=== PATIENT | female | born 1955 | race Caucasian/White ===

== ENCOUNTER 2017-04-18 16:50 | Emergency (ER) | payer MEDICAID ==
[2017-04-18] MEDS ORDERED: Bupivacaine 0.5% 30 ML SDV INFILT ONE (16:51)
--- NOTE | 2017-04-18 17:26 | EDM.PDOC ---
ED HPI GENERAL MEDICAL PROBLEM - General Stated Complaint: L FINGER LACERATION Time Seen by Provider: 04/18/17 16:50 Source of Information: Reports: Patient, Family History Limitations: Reports: No Limitations - History of Present Illness INITIAL COMMENTS - FREE TEXT/NARRATIVE: 61 years old w f came to the ed with her mom after she cut herself in her left middle finger tip at the kitchen while cutting tomatoes. The wound was severely bleeding what brought the pt the ED. No loss of function. No other acute medical issues at this time. Onset: Today Onset Date: 04/18/17 Onset Time: 16:45 Duration: Minutes: Location: Reports: Upper Extremity, Left (middle finger tip) Quality: Reports: Burning, Stabbing Severity: Mild Improves with: Reports: Rest Worsens with: Reports: Movement Context: Reports: Trauma Associated Symptoms: Reports: No Other Symptoms Left Middle Hand Pain Score (Numeric/FACES): 1 - Related Data Allergies Allergy/AdvReac Type Severity Reaction Status Date / Time Penicillins Allergy Severe Hives Verified 04/18/17 17:12 Sulfa (Sulfonamide Allergy Severe Hives Verified 04/18/17 17:12 Antibiotics) morphine Allergy Itching Verified 04/18/17 17:12 pseudoephedrine HCl Allergy Tachycardia Verified 04/18/17 17:12 [From Sudafed] Home Meds: Home Meds Aspirin [Ecotrin] 81 mg PO DAILY 08/02/14 [History] Ibuprofen [Advil] 800 mg PO Q6HR PRN 08/02/14 [History] Lisinopril/Hydrochlorothiazide [Zestoretic 20-25 MG] 20 - 25 mg PO DAILY [History] Omeprazole [Prilosec] 20 mg PO DAILY 08/02/14 [History] Sertraline [Zoloft] 50 mg PO DAILY 08/02/14 [History] Cephalexin [Keflex] 500 mg PO Q6HR #40 cap 04/18/17 [Rx] Social & Family History - Tobacco Use Smoking Status *Q: Never Smoker - Alcohol Use Days Per Week of Alcohol Use: 7 Number of Drinks Per Day: 2 Total Drinks Per Week: 14 - Recreational Drug Use Recreational Drug Use: No ED ROS GENERAL - Review of Systems Review Of Systems: See Below Constitutional: Reports: No Symptoms HEENT: Reports: No Symptoms Respiratory: Reports: No Symptoms Cardiovascular: Reports: No Symptoms Endocrine: Reports: No Symptoms GI/Abdominal: Reports: No Symptoms : Reports: No Symptoms Musculoskeletal: Reports: No Symptoms Skin: Reports: Wound (left middle finger) Neurological: Reports: No Symptoms Psychiatric: Reports: No Symptoms Hematologic/Lymphatic: Reports: No Symptoms Immunologic: Reports: No Symptoms ED EXAM, SKIN/RASH Exam: See Below Exam Limited By: No Limitations General Appearance: Alert, WD/WN, Mild Distress Eye Exam: Bilateral Eye: Normal Inspection Ears: Normal External Exam, Normal Canal Nose: Normal Inspection Throat/Mouth: Normal Inspection, Normal Lips Head: Atraumatic, Normocephalic Neck: Normal Inspection, Supple Respiratory/Chest: No Respiratory Distress, Lungs Clear Cardiovascular: Normal Peripheral Pulses, Regular Rate, Rhythm, No Edema Peripheral Pulses: 1+: Femoral (L), Femoral (R) GI/Abdominal: Normal Bowel Sounds, Soft, Non-Tender (Female) Exam: Deferred Rectal (Female) Exam: Deferred Back Exam: Normal Inspection, Full Range of Motion Extremities: Normal Inspection, Normal Range of Motion, Non-Tender, No Pedal Edema, Normal Capillary Refill, Other (Laceration left middle finger tip) Neurological: Alert, Oriented, CN II-XII Intact, Normal Cognition, Normal Gait Psychiatric: Normal Affect, Normal Mood Skin: Other (Laceration left middle finger tip) Lymphatic: No Adenopathy ED SKIN PROCEDURES - Laceration/Wound Repair Left Middle Finger Lac/Wound length In cm: 1 Appearance: Subcutaneous, Clean Distal NVT: Neuro & Vascular Intact, No Tendon Injury Anesthetic Type: Local Local Anesthesia - Bupivicaine (Marcaine): 0.5% Plain Local Anesthetic Volume: 1cc Skin Prep: Providone-Iodine (Betadine) Saline Irrigation (cc's): 1 Exploration/Debridement/Repair: Wound Explored, In a Bloodless Field, Explored to Base Closed with: Sutures Suture Size: 4-0 Suture Type: Interrupted Suture Size: 4-0 # of Sutures: 2 Repaired with: Vicryl Sterile Dressing Applied: Nurse Tetanus Status Addressed: Yes (UTD) Complications: No Course - Vital Signs Text/Narrative:: 61 years old w f came to the ed with her mom after she cut herself in her left middle finger tip at the kitchen while cutting tomatoes. The wound was severely bleeding what brought the pt the ED. No loss of function. No other acute medical issues at this time. PE: 1 cm LAC left middle finger tip with venous bleed. No loss of function. Procedure: Please see note above Impression: LAC left middle finger tip with venous bleed Tx: Abx, Wound care. Reexam: Improved Plan: D/C with instructions Last Recorded V/S: Last Vital Signs Temp 36.3 C 04/18/17 17:15 Pulse 90 04/18/17 17:15 Resp 14 04/18/17 17:15 BP 147/92 H 04/18/17 17:15 Pulse Ox 98 04/18/17 17:15 - Orders/Labs/Meds Meds: Medications Discontinued Medications Generic Name Dose Route Start Last Admin Trade Name Freq PRN Reason Stop Dose Admin Cephalexin 500 mg 04/18/17 17:31 04/18/17 17:37 Keflex PO 04/18/17 17:32 500 mg ONETIME ONE Administration Departure - Departure Time of Disposition: 17:23 Disposition: Home, Self-Care 01 Condition: Good Clinical Impression: Finger laceration Qualifiers: Encounter type: initial encounter Finger: middle finger Damage to nail status: without damage Foreign body presence: without foreign body Laterality: left Qualified Code(s): S61.213A - Laceration without foreign body of left middle finger without damage to nail, initial encounter - Discharge Information Prescriptions: Cephalexin [Keflex] 500 mg PO Q6HR #40 cap Referrals: Erickson Vaughn MD [Primary Care Provider] - Forms: ED Department Discharge Additional Instructions: wound check in 2-3 days, sutures are absorbable, please f/u, please came back if your symptoms get worse acutely. Please take keflex as recommended.
[2017-04-18 17:31] VITALS: BP 147/92
[2017-04-18] MEDS ORDERED: Cephalexin 500 MG Cap PO ONE (17:31)
== END 2017-04-18 17:45 | disposition home or self-care (01) ==
LOC: FB.ED 16:50
DX: S61.213A Laceration without foreign body of left middle finger without damage to nail, initial encounter (principal); Z88.2 Allergy status to sulfonamides; Z88.0 Allergy status to penicillin; Z88.5 Allergy status to narcotic agent; Z79.82 Long term (current) use of aspirin; W26.9XXA Contact with unspecified sharp object(s), initial encounter; Y93.G3 Activity, cooking and baking
CPT/HCPCS: 12001; 99282; A9270